=== PATIENT | female | born 2000 | race American Indian/Alaskan Native ===

== ENCOUNTER 2021-06-03 21:42 | Emergency (ER) | payer MEDICAID ==
[2021-06-03 21:46] VITALS: BP 157/89
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
== END 2021-06-04 | disposition home or self-care (01) ==
LOC: ED 21:42
DX: M62.838 Other muscle spasm (principal); V87.7XXA Person injured in collision between other specified motor vehicles (traffic), initial encounter; Y93.89 Activity, other specified; Y92.488 Other paved roadways as the place of occurrence of the external cause; Y99.8 Other external cause status
CPT/HCPCS: 99281